=== PATIENT | female | born 1950 | race Two or more races ===

== ENCOUNTER 2021-06-08 09:24 | Outpatient (CLI) | payer OTHER | END 2021-06-08 09:29 | disposition home or self-care (01) | LOC: SONOGRAMA 09:24 | PROVIDERS: ATTEND Pathology Anatomic Pathology & Clinical Pathology | DX: E04.2 Nontoxic multinodular goiter (principal) ==

== ENCOUNTER 2022-04-15 08:38 | Outpatient (CLI) | payer OTHER | END 2022-04-15 08:52 | disposition home or self-care (01) | LOC: TOM 08:38 | PROVIDERS: ATTEND Internal Medicine Gastroenterology | DX: K56.601 Complete intestinal obstruction, unspecified as to cause (principal); Z12.11 Encounter for screening for malignant neoplasm of colon ==